=== PATIENT | female | born 1990 | race Caucasian/White ===

== ENCOUNTER 2022-12-10 19:28 | Outpatient (REF) | payer BC, SELFPAY ==
--- NOTE | ~2022-12-10 | MR_ITS ---
EXAMINATION: MR LUMBAR SPINE WITHOUT CONTRAST CLINICAL INFORMATION: Left sciatica pain. COMPARISON: MRI scan of the lumbar spine 11/18/2018. TECHNIQUE: MRI of the lumbar spine was obtained using routine sequences without contrast. FINDINGS: VERTEBRAL BODIES AND PARASPINAL STRUCTURES: There is a mild retrolisthesis of L2 on L3. There is narrowing of intervertebral disc height with loss of signal from the disc at this level. There are small Schmorl's nodes at adjacent endplates in the lower thoracic and in the mid and upper lumbar spine. The vertebral bodies have normal height and contour, and no fractures are demonstrated. Overall, marrow signal is homogenous. The visualized retroperitoneal structures are unremarkable. The previously demonstrated right adnexal cyst is not appreciated on this study. CONUS MEDULLARIS AND CAUDA EQUINA: Normal, terminating at the level of L1. The lower thoracic spinal cord appears normal. The cauda equina nerve roots and filum terminale appear normal. SPINAL LEVELS: T11-T12: On the sagittal images there is a small right-sided disc protrusion without mass effect on the lower thoracic spinal cord, and there is no central stenosis. The neural foramina are patent. L1-L2: The facet joints appear normal bilaterally. Disc contour is normal. There is no central stenosis or foraminal narrowing. L2-L3: There is mild bilateral facet arthropathy. There is a shallow posterior disc protrusion, but there is no mass effect on the thecal sac. There is no central stenosis or foraminal narrowing. L3-L4: There is mild bilateral facet arthropathy. Disc contour is normal. There is no central stenosis or foraminal narrowing. L4-L5: There is mild bilateral facet arthropathy. There is a small right sided disc protrusion with an annular fissure extending into the right neural foramen without definite exiting nerve root impingement. There is no central stenosis. L5-S1: There is mild bilateral facet arthropathy. There is a mild posterior disc protrusion with minimal mass effect on the thecal sac, but there is no central stenosis. The neural foramina appear patent bilaterally. MR/MR lumbar spine wo con IMPRESSION: 1. At L4-L5 there is a small right-sided disc protrusion with an annular fissure extending into the right neural foramen without definite exiting nerve root impingement. There is no central stenosis. 2. At L5-S1 there is a mild posterior disc protrusion with minimal mass effect on the thecal sac. There is no central stenosis or foraminal narrowing. 3. At T11-T12 there is a small right-sided disc protrusion without mass effect on the lower thoracic spinal cord and there is no central stenosis. The neural foramina are patent. 4. There is a mild retrolisthesis of L2 on L3, with a shallow posterior disc protrusion. There is no central stenosis or foraminal narrowing.
== END 2022-12-10 19:29 | disposition home or self-care (01) ==
LOC: HO.MRI 19:28
PROVIDERS: Visit Provider Psychiatry & Neurology Neurology
DX: M54.32 Sciatica, left side (principal)
CPT/HCPCS: 72148